=== PATIENT | male | born 1935 | race Caucasian/White ===

== ENCOUNTER → 2017-12-07 | Outpatient (CLI) | payer MEDICARE ==
[~2017-12-07] MED LIST: ALBU8.5H12 IH; ASPI-1471 PO; AZIT-1 PO; BLOO-1318 MC; CLOP75TA43 PO; CYAN100T25 PO; EZET1TAB PO; IBUP600T22 PO; INSU100I28 SQ; INSU100I36 SQ; INSU100V24 SQ; LANI SUBQ; NAPR500T31 PO; OMEG500C5 PO; OSE75 PO; PYRI100T57 PO; VAL80 PO
[2017-12-07 16:36] LABS: PLATELET COUNT, AUTOMATED 213 K/uL (150-450)
== END ==
LOC: LAB 16:22
PROVIDERS: ATTEND Emergency Medicine
DX: E11.9 Type 2 diabetes mellitus without complications (principal)
CPT/HCPCS: 36415; 82040; 82247; 82310; 82374; 82435; 82550; 82565; 82947; 83036; 84075; 84132; 84155; 84295; 84450; 84460; 84520; 85025

== ENCOUNTER 2018-01-31 19:03 | Emergency (ER) | payer MEDICARE ==
[~2018-01-31 19:03] MED LIST changes: +BIPAP
--- NOTE | 2018-01-31 19:13 | ER Report ---
History and Physical Time Seen By MD: 19:13 Hx. of Stated Complaint: pt has a dry cough since last night; states that his chest is tight HPI/ROS CHIEF COMPLAINT: Cough HISTORY OF PRESENT ILLNESS: 83-year-old male patient presents to emergency room with complaint of cough. Patient states that he was up and whorling yesterday. As he was traveling to [place] he was having significant amounts of coughing. He states that he never coughed anything up the cough is just dry. He denies having any fevers, chills, nausea, vomiting or diarrhea. Patient states he is not taking any medication for this other than Tylenol. States the Tylenol did seem to help a little bit. Patient states that the cough is just been very persistent and wanted to get that checked out to make sure that he didn't become something more significant. Patient denies having any chest pain, hemoptysis, shortness of breath. Patient states he does feel like his chest is tight. REVIEW OF SYSTEMS: Respiratory: As noted above Cardiovascular: No chest pain, no palpitations. Gastrointestinal: No vomiting, no abdominal pain. Musculoskeletal: No back pain. 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 Please fill for 90 days plus 3 refills. Prov:LOC BANEGAS MD 03/28/17 Insulin Lispro 100 Un/Ml Vial (HUMALOG 100 U/ML VIAL) 100 Unit/1 Ml Vial, 12 UNIT SQ TIDAC, #6 VIAL 3 Refills Prov:LOC BANEGAS MD 01/07/16 Reported Medications Acetaminophen (TYLENOL) 325 Mg Tablet, 325 MG PO PRN, TAB 01/31/18 Bipap Home (BIPAP HOME) Inha 01/13/18 [place]-3 Fatty Acids (FISH OIL) 500 Mg Capsule.dr, 500 MG PO DAILY 08/04/14 Cyanocobalamin (Vitamin B-12) (VITAMIN B-12) 100 Mcg Tablet, 100 MCG PO DAILY 08/04/14 Pyridoxine Hcl (VITAMIN B-6) 100 Mg Tablet, 100 MG PO DAILY 08/04/14 Ibuprofen (IBUPROFEN) 600 Mg Tablet, 500 MG PO Q6H Y for PAIN 08/04/14 Ezetimibe/Simvastatin (VYTORIN 10-10 MG TABLET) 1 Each Tablet, 1 EACH PO QDAY 08/04/14 Aspirin (ASPIR 81) 81 Mg Tablet.dr, 81 MG PO QDAY, TAB 08/04/14 Clopidogrel Bisulfate (PLAVIX) 75 Mg Tablet, 1 TAB PO QDAY TAKE ONE TABLET BY MOUTH EVERY DAY 08/04/14 Discontinued Scripts Valsartan (DIOVAN) 80 Mg Tablet, 0.5 TAB PO DAILY, #1 TAB Prov:LOC BANEGSA MD 12/07/17 Naproxen (NAPROXEN) 500 Mg Tablet, 500 MG PO BID for 7 Days, #14 TAB Prov:JIMMIE ROPER MD 05/09/17 Past Medical/Surgical History Patient has a past medical history of CVA, eye, oxygen at night, prostate cancer , diabetes. Patient has a surgical history of prostatectomy, tonsillectomy, triple bypass. Reviewed Nurses Notes: Yes Hx Smoking: No Smoking Status: Never Smoker, Former Smoker Exposure to Second Hand Smoke?: Yes Hx Substance Use Disorder: No Hx Alcohol Use: No Constitutional Vital Sign - Last 24 Hours 01/31/18 01/31/18 01/31/18 01/31/18 19:09 19:09 19:33 19:38 Temp 98.2 Pulse 57 53 57 Resp 17 B/P (MAP) 150/62 150/62 (91) Pulse Ox 92 97 97 O2 Delivery Room Air 01/31/18 01/31/18 20:00 20:08 Pulse 52 B/P (MAP) 133/60 (84) Pulse Ox 96 Physical Exam General Appearance: The patient is alert, has no immediate need for airway protection and no current signs of toxicity. Respiratory: Chest is non tender, lungs are clear to auscultation. Cardiac: regular rate and rhythm Gastrointestinal: Abdomen is soft and non tender, no masses, bowel sounds normal. Musculoskeletal: Neck: Neck is supple and non tender. Extremities have full range of motion and are non tender. Skin: No rashes or lesions. DIFFERENTIAL DIAGNOSIS: After history and physical exam differential diagnosis was considered for pneumonia, bronchitis, reactive airway, reflux, reaction medication. Medical Decision Making Data Points Result Diagram: 01/31/18193501/31/181935 Laboratory Hematology Test 01/31/18 19:36 Red Blood Count 3.98 M/uL (4.00-5.60) Mean Corpuscular Volume 88.9 fL (80.0-96.0) Mean Corpuscular Hemoglobin 30.7 pg (26.0-33.0) Mean Corpuscular Hemoglobin Concent 34.5 g/dL (32.0-36.0) Red Cell Distribution Width 14.4 % (11.5-14.5) Mean Platelet Volume 7.1 fL (7.2-11.1) Neutrophils (%) (Auto) 72.7 % (39.4-72.5) Lymphocytes (%) (Auto) 17.7 % (17.6-49.6) Monocytes (%) (Auto) 7.8 % (4.1-12.4) Eosinophils (%) (Auto) 1.1 % (0.4-6.7) Basophils (%) (Auto) 0.7 % (0.3-1.4) Nucleated RBC Relative Count (auto) 0.2 /100WBC Neutrophils # (Auto) 4.5 K/uL (2.0-7.4) Lymphocytes # (Auto) 1.1 K/uL (1.3-3.6) Monocytes # (Auto) 0.5 K/uL (0.3-1.0) Eosinophils # (Auto) 0.1 K/uL (0.0-0.5) Basophils # (Auto) 0.0 K/uL (0.0-0.1) Nucleated RBC Absolute Count (auto) 0.01 K/uL Sodium Level 135 mmol/L (137-145) Potassium Level 4.5 mmol/L (3.5-5.0) Chloride Level 99 mmol/L (98-107) Carbon Dioxide Level 28 mmol/L (22-30) Blood Urea Nitrogen 25 mg/dl (9-21) Creatinine 1.20 mg/dl (0.66-1.25) Glomerular Filtration Rate Calc 57.8 Random Glucose 187 mg/dl (75-110) Calcium Level 8.9 mg/dl (8.4-10.2) Total Bilirubin 0.3 mg/dl (0.2-1.3) Aspartate Amino Transf (AST/SGOT) 26 U/L (0-35) Alanine Aminotransferase (ALT/SGPT) 25 U/L (0-56) Alkaline Phosphatase 56 U/L (0-126) Troponin I < 0.012 ng/ml Total Protein 6.8 g/dl (6.3-8.2) Albumin 4.1 g/dl (3.5-5.0) Chemistry Test 01/31/18 19:36 White Blood Count 6.3 k/uL (4.5-11.0) Red Blood Count 3.98 M/uL (4.00-5.60) Hemoglobin 12.2 g/dL (14.0-18.0) Hematocrit 35.4 % (42.0-52.0) Mean Corpuscular Volume 88.9 fL (80.0-96.0) Mean Corpuscular Hemoglobin 30.7 pg (26.0-33.0) Mean Corpuscular Hemoglobin Concent 34.5 g/dL (32.0-36.0) Red Cell Distribution Width 14.4 % (11.5-14.5) Platelet Count 209 K/uL (150-450) Mean Platelet Volume 7.1 fL (7.2-11.1) Neutrophils (%) (Auto) 72.7 % (39.4-72.5) Lymphocytes (%) (Auto) 17.7 % (17.6-49.6) Monocytes (%) (Auto) 7.8 % (4.1-12.4) Eosinophils (%) (Auto) 1.1 % (0.4-6.7) Basophils (%) (Auto) 0.7 % (0.3-1.4) Nucleated RBC Relative Count (auto) 0.2 /100WBC Neutrophils # (Auto) 4.5 K/uL (2.0-7.4) Lymphocytes # (Auto) 1.1 K/uL (1.3-3.6) Monocytes # (Auto) 0.5 K/uL (0.3-1.0) Eosinophils # (Auto) 0.1 K/uL (0.0-0.5) Basophils # (Auto) 0.0 K/uL (0.0-0.1) Nucleated RBC Absolute Count (auto) 0.01 K/uL Glomerular Filtration Rate Calc 57.8 Calcium Level 8.9 mg/dl (8.4-10.2) Total Bilirubin 0.3 mg/dl (0.2-1.3) Aspartate Amino Transf (AST/SGOT) 26 U/L (0-35) Alanine Aminotransferase (ALT/SGPT) 25 U/L (0-56) Alkaline Phosphatase 56 U/L (0-126) Troponin I < 0.012 ng/ml Total Protein 6.8 g/dl (6.3-8.2) Albumin 4.1 g/dl (3.5-5.0) EKG/Imaging EKG Interpretation 12 lead EKG: Rhythm: Sinus bradycardia [place]: normal QRS: Nonspecific intraventricular block ST segments: normal Imaging 2 VIEWS CHEST INDICATION: Cough for 2 to 3 days. COMPARISON: 11/25/2016. FINDINGS: Cardiomediastinal silhouette and pulmonary vessels within normal limits. Sternotomy changes. There is no focal infiltrate or lobar consolidation. There is no pneumothorax or pleural effusion. No nodule. Mild postinflammatory changes again seen apices without nodule. Upper abdomen is unremarkable. No acute bony abnormality. IMPRESSION: 1. No acute cardiopulmonary process. Report Dictated By: Darci Roman at 01/31/2018 7:52 PM Report E-Signed By: Darci Roman at 01/31/2018 7:54 PM ED Course/Re-evaluation ED Course Patient was admitted to the exam room, history of physical were obtained. Differential diagnoses were considered. On examination lungs are clear, heart is regular, abdomen soft nontender. A CBC, CMP, troponin, EKG, chest x-ray were done. Labs were negative, he did seem to be a little bit dehydrated with a elevated BUN and normal creatinine. Troponin was normal. EKG showed a sinus bradycardia. Entire time the patient was here in the emergency room he did not have any coughing. We will go ahead and discharge him home at this time. We will give him a limited supply of promethazine with codeine cough syrup, Tessalon Perles. He is to use promethazine just at nighttime. He is return to emergency room if condition worsens. Would like an increase fluid intake, get plenty of rest. He is to follow-up with his primary care provider in the next week. Patient is daughter verbalized understanding and agreement with plan. Decision to Disposition Date: Jan 31, 2018 Decision to Disposition Time: 20:27 Depart Departure Latest Vital Signs Vital Signs Date Time Temp Pulse Resp B/P (MAP) Pulse Ox O2 Delivery O2 Flow Rate FiO2 01/31/18 20:08 52 96 01/31/18 20:00 133/60 (84) 01/31/18 19:09 98.2 17 Room Air Impression: Primary Impression: Cough Condition: Improved Disposition: HOME OR SELF-CARE Referrals: LOC BANEGAS MD (PCP) New Scripts Promethazine HCl/Codeine (Prometh-Codein 6.25-10 mg/5 ml) 5 Ml Syrup 1 TSP PO QHS Y for COUGH, #60 ML Prov: ABHAY MELARA 01/31/18 Benzonatate 100 Mg Cap (TESSALON PERLE 100 MG CAP) 100 Mg Capsule 100 MG PO TID Y for COUGH, #15 CAP Prov: ABHAY MELARA 01/31/18 Patient Instructions: Acute Cough (ED) Additional Instructions: Increase fluid intake. Get plenty of rest. Follow up with your primary care provider in the next week. Return to the ER if condition worsens. Take the medication as prescribed. ABHAY MELARA Jan 31, 2018 19:13
[2018-01-31] MEDS ORDERED: ACET-1966 PO (19:21)
--- NOTE | 2018-01-31 19:32 | EKG ---
FACILITY: [facility] [place] PATIENT NAME: SUSI MAYFIELD : [id number] MR: [id number] V: [id number] EXAM DATE: ORDERING PHYSICIAN: ABHAY MELARA TECHNOLOGIST: Test Reason : CHEST TIGHTNESS Blood Pressure : / mmHG Vent. Rate : 052 BPM Atrial Rate : 052 BPM P-R Int : 176 ms QRS Dur : 126 ms QT Int : 450 ms P-R-T Axes : 068 051 048 degrees QTc Int : 418 ms Sinus bradycardia Left bundle branch block Cannot rule out Septal infarct , age undetermined Abnormal ECG No previous ECGs available Confirmed by QI CAREY ([id number]) on 01/31/2018 9:01:33 PM Referred By: Confirmed By:QI CAREY
[2018-01-31 19:46] LABS: PLATELET COUNT, AUTOMATED 209 K/uL (150-450)
[2018-01-31] MEDS ORDERED: hydrOXYzine 25 MG TAB TH 2 TAB/BOTTLE PO ONE (19:55)
--- NOTE | 2018-01-31 19:58 | RADIOLOGY IMAGING REPORT ---
FACILITY: [facility] PATIENT NAME: Tab Moreno : 1935 MR: [id number] V: [id number] EXAM DATE: ORDERING PHYSICIAN: ABHAY MELARA TECHNOLOGIST: Location: [facility] Patient: Tab Moreno : 1935 Visit/Account:[id number] Date of Sevice: 01/31/2018 2 VIEWS CHEST INDICATION: Cough for 2 to 3 days. COMPARISON: 11/25/2016. FINDINGS: Cardiomediastinal silhouette and pulmonary vessels within normal limits. Sternotomy changes. There is no focal infiltrate or lobar consolidation. There is no pneumothorax or pleural effusion. No nodule. Mild postinflammatory changes again seen apices without nodule. Upper abdomen is unremarkable. No acute bony abnormality. IMPRESSION: 1. No acute cardiopulmonary process. Report Dictated By: Darci Roman at 01/31/2018 7:52 PM Report E-Signed By: Darci Roman at 01/31/2018 7:54 PM WSN:[id number]
[2018-01-31] MEDS ORDERED: BENZ100C4 PO (20:25)
[2018-01-31] MEDS ORDERED: PROMETH/COD SYRP 6.25-10MG/5ML PO ONE (20:25)
[2018-01-31] MEDS ORDERED: PROM5SYR PO (20:25)
[2018-01-31] MEDS ORDERED: BENZONATATE 100 MG CAP PO ONE (20:25)
[2018-01-31 20:30] VITALS: BP 126/61
== END 2018-01-31 20:37 | disposition home or self-care (01) ==
LOC: ER 19:26
DX: R05 Cough (principal)
CPT/HCPCS: 36415; 84484; 85025; 93005; 99284; A9270; 71046; 82040; 82247; 82310; 82374; 82435; 82565; 82947; 84075; 84132; 84155; 84295; 84450; 84460; 84520

== ENCOUNTER → 2018-03-01 | Outpatient (CLI) | payer MEDICARE ==
[~2018-03-01] MED LIST changes: +ACET-1966 PO; +BENZ100C4 PO; +PROM5SYR PO
== END ==
LOC: RESP 20:27
PROVIDERS: ATTEND Emergency Medicine
DX: G47.33 Obstructive sleep apnea (adult) (pediatric) (principal); G47.36 Sleep related hypoventilation in conditions classified elsewhere

== ENCOUNTER → 2018-03-29 | Outpatient (CLI) | payer MEDICARE ==
[~2018-03-29] MED LIST changes: +FLUT16SP19 NS
== END ==
LOC: LAB 09:49
PROVIDERS: ATTEND Internal Medicine
DX: I25.810 Atherosclerosis of coronary artery bypass graft(s) without angina pectoris (principal); E78.2 Mixed hyperlipidemia; I65.23 Occlusion and stenosis of bilateral carotid arteries; E10.65 Type 1 diabetes mellitus with hyperglycemia
CPT/HCPCS: 36415; 82040; 82247; 82310; 82374; 82435; 82465; 82565; 82947; 83036; 83718; 84075; 84132; 84155; 84295; 84450; 84460; 84478; 84520

== ENCOUNTER → 2018-06-28 | Outpatient (CLI) | payer MEDICARE ==
[~2018-06-28] MED LIST changes: +FLU180SY11 IM
[2018-06-28 15:55] LABS: PLATELET COUNT, AUTOMATED 250 K/uL (150-450)
--- NOTE | 2018-06-28 17:39 | RADIOLOGY IMAGING REPORT ---
FACILITY: [facility] - [place] PATIENT NAME: Tab Moreno : 1935 MR: [id number] V: [id number] EXAM DATE: ORDERING PHYSICIAN: LOC BANEGAS TECHNOLOGIST: [place] [facility] [place] Moreno : 1935 Visit/Account:[id number] Date of Sevice: 06/28/2018 HIP LEFT Indication: Left hip pain radiating down leg. Comparison: None available Findings: There is no acute fracture or dislocation of the left hip. Mild degenerative changes left hip joint noted Moderate degenerative disc disease at L4-L5. Surgical clips project over the pelvis. IMPRESSION: 1. No acute osseous abnormality left hip. Report Dictated By: Brien Parnell MD at 06/28/2018 5:35 PM Report E-Signed By: Brien Parnell MD at 06/28/2018 5:36 PM WSN:[id number]
== END ==
LOC: LAB 15:37
PROVIDERS: ATTEND Emergency Medicine
DX: E10.9 Type 1 diabetes mellitus without complications (principal); M25.552 Pain in left hip
CPT/HCPCS: 36415; 82040; 82247; 82310; 82374; 82435; 82565; 82947; 83036; 84075; 84132; 84155; 84295; 84450; 84460; 84520; 85025; 86140

== ENCOUNTER → 2018-08-04 | Outpatient (CLI) | payer MEDICARE ==
[~2018-08-04] MED LIST changes: +ASPI81TA86 PO; +EZET10TA41 PO; +HUM75/25I SUBQ; +IBUP-56 PO; +IRBE75TA10 PO; +SIMV-49 PO; +TRAM-420 PO
--- NOTE | 2018-08-05 03:26 | RADIOLOGY IMAGING REPORT ---
FACILITY: [facility] - [place] PATIENT NAME: Tab Moreno : 1935 MR: [id number] V: [id number] EXAM DATE: ORDERING PHYSICIAN: LOC BANEGAS TECHNOLOGIST: Location: [facility] [place] Patient: Tab Moreno : 1935 Visit/Account:[id number] Date of Sevice: 08/04/2018 EXAMINATION: Ultrasound bilateral lower extremity arterial exam. HISTORY: Left lower extremity pain. High ABIs both sides. COMPARISON: None. FINDINGS: Right lower extremity: The arterial system is patent from the common femoral artery through the dorsalis pedis artery. Peak systolic velocities range from 146 cm/sec in the common femoral artery to 83 cm/sec in the dorsalis p marcin artery. Mildly elevated velocity in the mid superficial femoral artery of 165 cm/sec. There is moderate calcified plaque, worst in the superficial femoral artery with mild visible narrowi ng distally. Left lower extremity: The arterial system is patent from the common femoral artery through the dorsalis pedis artery. Peak systolic velocities range from 109 cm/sec in the common femoral artery to 47 cm/sec in the dorsalis p marcin artery. Mildly elevated velocity in the mid superficial femoral artery of 152 cm/sec. There is moderate calcified plaque, worst in the superficial femoral artery. Biphasic waveforms in th e dorsalis pedis artery. IMPRESSION: 1. Patent bilateral lower extremity arteries. 2. 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 3. Moderate atherosclerotic plaque of the left lower extremity with stenosis of the mid superficial f emoral artery, likely over 50%. Report Dictated By: Regine Whiting MD at 08/05/2018 3:16 AM Report E-Signed By: Regine Whiting MD at 08/05/2018 3:23 AM WSN:[id number]
== END ==
LOC: US 11:00
PROVIDERS: ATTEND Emergency Medicine
DX: I70.203 Unspecified atherosclerosis of native arteries of extremities, bilateral legs (principal)
CPT/HCPCS: 93925

== ENCOUNTER 2018-08-07 13:11 | Observation (INO) | payer MEDICARE ==
[~2018-08-07] VITALS: Ht 182.9 cm; Wt 69.4 kg
[~2018-08-07 13:11] MED LIST changes: -ASPI81TA86 PO; -EZET10TA41 PO; -HUM75/25I SUBQ; -IBUP-56 PO; -IRBE75TA10 PO; -SIMV-49 PO
[2018-08-07 14:01] LABS: PLATELET COUNT, AUTOMATED 243 K/uL (150-450)
--- NOTE | 2018-08-07 14:04 | EKG ---
FACILITY: [facility] PATIENT NAME: SUSI MAYFIELD : [id number] MR: [id number] V: [id number] EXAM DATE: ORDERING PHYSICIAN: SHEELA SHANE TECHNOLOGIST: BONI Test Reason : Blood Pressure : / mmHG Vent. Rate : 099 BPM Atrial Rate : 099 BPM P-R Int : 196 ms QRS Dur : 140 ms QT Int : 374 ms P-R-T Axes : 084 103 073 degrees QTc Int : 479 ms Normal sinus rhythm Left bundle branch block Abnormal ECG When compared with ECG of 01.31.2018 No significant change was found Confirmed by Óscar Pena ([id number]) on 08/07/2018 10:44:49 PM Referred By: JANEEN Confirmed By:Óscar Durand
--- NOTE | 2018-08-07 14:44 | ER Report ---
History and Physical Time Seen By MD: 13:15 Hx. of Stated Complaint: VOMITING HPI/ROS CHIEF COMPLAINT: Altered mental status HISTORY OF PRESENT ILLNESS: Patient brought in by EMS, due to concern by daughter who lives with him. He has had 2 days of decreased responsiveness and increased confusion that worsened this morning. Patient has had 5 episodes of nonbloody nonbilious vomiting this morning. No diarrhea or abdominal pain. He can answer simple questions and denies further ROS. REVIEW OF SYSTEMS: Constitutional: No fever, no chills. Eyes: no blurred vision. ENT: No sore throat. Cardiovascular: No chest pain, no palpitations. Respiratory: No cough, no shortness of breath. Gastrointestinal: above Genitourinary: no dysuria Musculoskeletal: No back pain. Skin: No rashes. Neurological: No headache. Difficulty word finding v understanding. no new focal weakness Remainder of the 14 system rev: Yes Allergies: Coded Allergies: acetaminophen (Verified Adverse Reaction, Mild, GI UPSET, 08/07/18) propoxyphene (Verified Adverse Reaction, Mild, GI UPSET, 08/07/18) Home Meds Active Scripts Insulin Glargine (LANTUS) 100 Unit/Ml Soln, 20 UNIT SUBQ HS, #2 VIAL 3 Refills Prov:LOC BANEGAS MD 04/11/18 Fluticasone Prop 50 Mcg Ns (FLONASE 50 MCG NS) 16 Gm [place].susp, 1 SPRAY NS BID for 10 Days, #1 BOT 0 Refills Prov:MILDRED GOMEZ DNP, FRONT OFFICE REPRESENTATIVE-BC 03/17/18 Insulin Lispro 100 Un/Ml Vial (HUMALOG 100 U/ML VIAL) 100 Unit/1 Ml Vial, 12 UNIT SQ TIDAC, #6 VIAL 3 Refills Prov:LOC BANEGAS MD 02/08/18 One Touch Ultra Test Strips (ONE TOUCH ULTRA TEST STRIPS) 1 Each Strip, 2 BOX MC 5XD, #450 STRIP 3 Refills Pt tests 5 times a day. Please fill for 90 days plus 3 refills. Prov:LOC BANEGAS MD 03/28/17 Reported Medications Acetaminophen (TYLENOL) 325 Mg Tablet, 325 MG PO PRN, TAB 01/31/18 Bipap Home (BIPAP HOME) Inha 01/13/18 [place]-3 Fatty Acids (FISH OIL) 500 Mg Capsule.dr, 500 MG PO DAILY 2/15/15 Cyanocobalamin (Vitamin B-12) (VITAMIN B-12) 100 Mcg Tablet, 100 MCG PO DAILY 08/04/14 Pyridoxine Hcl (VITAMIN B-6) 100 Mg Tablet, 100 MG PO DAILY 08/04/14 Ibuprofen (IBUPROFEN) 600 Mg Tablet, 500 MG PO Q6H PRN for PAIN 08/04/14 Ezetimibe/Simvastatin (VYTORIN 10-10 MG TABLET) 1 Each Tablet, 1 EACH PO QDAY 08/04/14 Aspirin (ASPIR 81) 81 Mg Tablet.dr, 81 MG PO QDAY, TAB 08/04/14 Clopidogrel Bisulfate (PLAVIX) 75 Mg Tablet, 1 TAB PO QDAY TAKE ONE TABLET BY MOUTH EVERY DAY 08/04/14 Discontinued Scripts Tramadol Hcl (TRAMADOL HCL) 50 Mg Tablet, 50-100 MG PO Q4-6H, #30 TAB Prov:LOC BANEGAS MD 08/04/18 Reviewed Nurses Notes: Yes Old Medical Records Reviewed: Yes Hx Smoking: No Smoking Status: Never Smoker, Former Smoker Exposure to Second Hand Smoke?: Yes Hx Substance Use Disorder: No Hx Alcohol Use: No Constitutional Vital Sign - Last 24 Hours 08/07/18 08/07/18 08/07/18 08/07/18 13:17 13:19 13:30 13:45 Temp 99.6 Pulse 96 90 Resp 16 10 B/P (MAP) 155/66 (95) 155/66 143/65 (91) Pulse Ox 93 92 O2 Delivery Nasal Cannula 08/07/18 08/07/18 08/07/18 08/07/18 14:00 14:30 14:45 15:00 Pulse 87 Resp 18 B/P (MAP) 132/54 (80) 135/75 (95) 110/54 (72) Pulse Ox 95 08/07/18 08/07/18 08/07/18 08/07/18 15:15 15:30 15:45 16:00 Pulse 87 99 Resp 10 30 B/P (MAP) 118/48 (71) 110/75 (87) Pulse Ox 95 93 08/07/18 08/07/18 08/07/18 16:15 16:30 16:45 Pulse 95 85 Resp 20 9 B/P (MAP) 105/72 (83) Pulse Ox 92 93 Physical Exam General Appearance: the patient is awake. He answers questions slowly, partially due to difficulty hearing. Has hearing aids in. Eyes: Pupils equal and round no pallor or injection. No nystagmus ENT, Mouth: Mucous membranes are slightly dry Respiratory: There are no retractions, lungs are clear to auscultation. Cardiovascular: borderline tachycardia no m/r/g Gastrointestinal: Abdomen is soft and non tender, no masses, bowel sounds normal. Neurological: awake, follows commands, alert to person and that this is ho spital, though has difficulty stating that he is in hospital Skin: Warm and dry, no rashes. Musculoskeletal: Neck is supple non tender. Extremities are nontender, nonswollen and have full range of motion. DIFFERENTIAL DIAGNOSIS: After history and physical exam differential diagnosis was considered for acs, cva, dehydration, sepsis, or other emergent cause of symptoms. Medical Decision Making Data Points Result Diagram: 08/07/18 1336 08/07/18 1336 Laboratory Hematology Test 08/07/18 13:36 08/07/18 14:59 08/07/18 15:06 08/07/18 17:02 Red Blood Count 4.50 M/uL (4.00-5.60) Mean Corpuscular Volume 89.8 fL (80.0-96.0) Mean Corpuscular Hemoglobin 29.5 pg (26.0-33.0) Mean Corpuscular Hemoglobin Concent 32.9 g/dL (32.0-36.0) Red Cell Distribution Width 14.2 % (11.5-14.5) Mean Platelet Volume 7.2 fL (7.2-11.1) Neutrophils (%) (Auto) 92.1 % (39.4-72.5) Lymphocytes (%) (Auto) 4.6 % (17.6-49.6) Monocytes (%) (Auto) 2.3 % (4.1-12.4) Eosinophils (%) (Auto) 0.5 % (0.4-6.7) Basophils (%) (Auto) 0.5 % (0.3-1.4) Nucleated RBC Relative Count (auto) 0.0 /100WBC Neutrophils # (Auto) 13.0 K/uL (2.0-7.4) Lymphocytes # (Auto) 0.7 K/uL (1.3-3.6) Monocytes # (Auto) 0.3 K/uL (0.3-1.0) Eosinophils # (Auto) 0.1 K/uL (0.0-0.5) Basophils # (Auto) 0.1 K/uL (0.0-0.1) Nucleated RBC Absolute Count (auto) 0.00 K/uL Blood Gas Patient Temperature 99.6 DEGREES Venous Blood pH 7.35 (7.31-7.41) Venous Blood Partial Pressure CO2 42 mmHg Venous Blood Partial Pressure O2 < 35 mmHg Venous Blood HCO3 23 mmol/L Venous Blood Oxygen Saturation 56 % Venous Blood Base Excess -2 mmol/L Oxygen Liters/Minute 4l Sodium Level 136 mmol/L (137-145) Potassium Level 5.1 mmol/L (3.5-5.0) Chloride Level 100 mmol/L (98-107) Carbon Dioxide Level 27 mmol/L (22-30) Blood Urea Nitrogen 34 mg/dl (9-21) Creatinine 1.40 mg/dl (0.66-1.25) Glomerular Filtration Rate Calc 48.4 Random Glucose 119 mg/dl (75-110) Lactate 1.1 mmol/L (0.7-2.1) Calcium Level 9.1 mg/dl (8.4-10.2) Magnesium Level 2.0 mg/dl (1.7-2.2) Total Bilirubin 0.4 mg/dl (0.2-1.3) Aspartate Amino Transf (AST/SGOT) 34 U/L (0-35) Alanine Aminotransferase (ALT/SGPT) 28 U/L (0-56) Alkaline Phosphatase 68 U/L (0-126) Total Protein 7.4 g/dl (6.3-8.2) Albumin 4.5 g/dl (3.5-5.0) Influenza Virus Type A (PCR) Negative (NEGATIVE) Influenza Virus Type B (PCR) Negative (NEGATIVE) Urine Color Yellow Urine Clarity Clear Urine pH 7.0 pH (4.8-9.5) Urine Specific [place] 1.015 Urine Protein Negative mg/dL (NEGATIVE) Urine Glucose (UA) Negative mg/dL (NEGATIVE) Urine Ketones Trace mg/dL (NEGATIVE) Urine Blood Negative (NEGATIVE) Urine Nitrite Negative (NEGATIVE) Urine Bilirubin Negative (NEGATIVE) Urine Urobilinogen Negative mg/dL (0.2-1.9) Urine Leukocyte Esterase Negative (NEGATIVE) Urine RBC 1 /HPF (0-2/HPF) Urine WBC 1 /HPF (0-5/HPF) Urine Squamous Epithelial Cells None /LPF (NONE-FEW) Urine Bacteria Negative /HPF (NONE-FEW) Urine Mucus None /HPF (NONE-FEW) Troponin I 0.047 ng/ml Chemistry Test 08/07/18 13:36 08/07/18 14:59 08/07/18 15:06 08/07/18 17:02 White Blood Count 14.1 k/uL (4.5-11.0) Red Blood Count 4.50 M/uL (4.00-5.60) Hemoglobin 13.3 g/dL (14.0-18.0) Hematocrit 40.4 % (42.0-52.0) Mean Corpuscular Volume 89.8 fL (80.0-96.0) Mean Corpuscular Hemoglobin 29.5 pg (26.0-33.0) Mean Corpuscular Hemoglobin Concent 32.9 g/dL (32.0-36.0) Red Cell Distribution Width 14.2 % (11.5-14.5) Platelet Count 243 K/uL (150-450) Mean Platelet Volume 7.2 fL (7.2-11.1) Neutrophils (%) (Auto) 92.1 % (39.4-72.5) Lymphocytes (%) (Auto) 4.6 % (17.6-49.6) Monocytes (%) (Auto) 2.3 % (4.1-12.4) Eosinophils (%) (Auto) 0.5 % (0.4-6.7) Basophils (%) (Auto) 0.5 % (0.3-1.4) Nucleated RBC Relative Count (auto) 0.0 /100WBC Neutrophils # (Auto) 13.0 K/uL (2.0-7.4) Lymphocytes # (Auto) 0.7 K/uL (1.3-3.6) Monocytes # (Auto) 0.3 K/uL (0.3-1.0) Eosinophils # (Auto) 0.1 K/uL (0.0-0.5) Basophils # (Auto) 0.1 K/uL (0.0-0.1) Nucleated RBC Absolute Count (auto) 0.00 K/uL Blood Gas Patient Temperature 99.6 DEGREES Venous Blood pH 7.35 (7.31-7.41) Venous Blood Partial Pressure CO2 42 mmHg Venous Blood Partial Pressure O2 < 35 mmHg Venous Blood HCO3 23 mmol/L Venous Blood Oxygen Saturation 56 % Venous Blood Base Excess -2 mmol/L Oxygen Liters/Minute 4l Glomerular Filtration Rate Calc 48.4 Lactate 1.1 mmol/L (0.7-2.1) Calcium Level 9.1 mg/dl (8.4-10.2) Magnesium Level 2.0 mg/dl (1.7-2.2) Total Bilirubin 0.4 mg/dl (0.2-1.3) Aspartate Amino Transf (AST/SGOT) 34 U/L (0-35) Alanine Aminotransferase (ALT/SGPT) 28 U/L (0-56) Alkaline Phosphatase 68 U/L (0-126) Total Protein 7.4 g/dl (6.3-8.2) Albumin 4.5 g/dl (3.5-5.0) Influenza Virus Type A (PCR) Negative (NEGATIVE) Influenza Virus Type B (PCR) Negative (NEGATIVE) Urine Color Yellow Urine Clarity Clear Urine pH 7.0 pH (4.8-9.5) Urine Specific [place] 1.015 Urine Protein Negative mg/dL (NEGATIVE) Urine Glucose (UA) Negative mg/dL (NEGATIVE) Urine Ketones Trace mg/dL (NEGATIVE) Urine Blood Negative (NEGATIVE) Urine Nitrite Negative (NEGATIVE) Urine Bilirubin Negative (NEGATIVE) Urine Urobilinogen Negative mg/dL (0.2-1.9) Urine Leukocyte Esterase Negative (NEGATIVE) Urine RBC 1 /HPF (0-2/HPF) Urine WBC 1 /HPF (0-5/HPF) Urine Squamous Epithelial Cells None /LPF (NONE-FEW) Urine Bacteria Negative /HPF (NONE-FEW) Urine Mucus None /HPF (NONE-FEW) Troponin I 0.047 ng/ml Urinalysis Test 08/07/18 15:06 Urine Color Yellow Urine Clarity Clear Urine pH 7.0 pH (4.8-9.5) Urine Specific [place] 1.015 Urine Protein Negative mg/dL (NEGATIVE) Urine Glucose (UA) Negative mg/dL (NEGATIVE) Urine Ketones Trace mg/dL (NEGATIVE) Urine Blood Negative (NEGATIVE) Urine Nitrite Negative (NEGATIVE) Urine Bilirubin Negative (NEGATIVE) Urine Urobilinogen Negative mg/dL (0.2-1.9) Urine Leukocyte Esterase Negative (NEGATIVE) Urine RBC 1 /HPF (0-2/HPF) Urine WBC 1 /HPF (0-5/HPF) Urine Squamous Epithelial Cells None /LPF (NONE-FEW) Urine Bacteria Negative /HPF (NONE-FEW) Urine Mucus None /HPF (NONE-FEW) EKG/Imaging EKG Interpretation 12 lead EKG: Rhythm: normal sinus rhythm Rate 99 [place]: right QRS: widened; intraventricular block ST segments: St elevations in face of LBBB more pronounced than prior. NSR with nonspecific intraventricular block and resultant st changes. ST depression in V5-6; pt has prior Monitor Interpretation: Normal Sinus Rhythm ED Course/Re-evaluation ED Course 83-year-old male presents with altered mental status and vomiting. Per family, he has been on tramadol the past few days for lower extremity pain presumably due to atherosclerosis for which he is undergoing workup. His initial evaluation is concerning for systemic illness, severe dehydration, CVA, ACS, or other emergent etiology. On initial evaluation is noted to have a leukocytosis though I do not ultimately find a clear focal infectious cause of this. This may be due to the significant vomiting. He also has an EKG which has dynamic changes compared to prior EKGs. He has a persistent left bundle branch block but given ST depressions he has 2 points for sgarbossa, criteria, therefore I will continue to evaluate. Ultimately, patient responds IV fluids and Zofran and improved significantly. However, we'll repeat EKG shows return to baseline compared to prior, his repeat troponin is indiscriminate. I initially consulted stonemason and spoke to his stonemason at [facility]. He felt the patient was pr obably not of urgent need for catheterization and we agreed that this may be more consistent with demand ischemia then acute coronary event at this time. He felt the patient could be monitored here for a repeat tropes and determination of need for nuclear stress test. I consulted our hospitalist who agreed with plan and will admit for further evaluation and continued hydration. I discussed the plans at length with family. They agree as well, especially in light of the fact that patient's prior stroke was iatrogenic due to intervention at that time, and they are reticent to put him through that potential for complication. Patient is full code. He remains alert and asymptomatic at time of admission. Decision to Disposition Date: Aug 07, 2018 Decision to Disposition Time: 18:50 Critical Care Time I spent a total of 45 minutes of critical care time in obtaining history, performing a physical exam, bedside monitoring of interventions, collecting and interpreting tests and discussion with consultants but not including time spent performing procedures. Depart Departure Latest Vital Signs Vital Signs Date Time Temp Pulse Resp B/P (MAP) Pulse Ox O2 Delivery O2 Flow Rate FiO2 08/07/18 16:45 85 9 93 08/07/18 16:30 105/72 (83) 08/07/18 13:19 99.6 Nasal Cannula Impression: Primary Impression: Vomiting Additional Impressions: Dehydration Elevated troponin Condition: Condition Unchanged Disposition: Admitted from ER Referrals: LOC BANEGAS MD (PCP) Problem Qualifiers Primary Impression: Vomiting Vomiting type: unspecified Vomiting Intractability: non-intractable Nausea presence: with nausea Qualified Codes: R11.2 - Nausea with vomiting, unspecified SHEELA SHANE MD Aug 07, 2018 14:44
[2018-08-07] MEDS ORDERED: NS(*) 0.9% 1000 ML BAG 1,000 ML IV ONE (14:45)
--- NOTE | 2018-08-07 14:47 | RADIOLOGY IMAGING REPORT ---
[place] [facility] [place] NAME: Tab Moreno : 1935 MR: [id number] V: [id number] EXAM DATE: ORDERING PHYSICIAN: SHEELA SHAEN TECHNOLOGIST: [place] [facility] [place]no : 1935 Visit/Account:[id number] Date of Sevice: 08/07/2018 CT OF THE BRAIN WITHOUT CONTRAST HISTORY: Altered mental status PROCEDURE: 3.0 mm contiguous axial sections were performed through the brain. Sagittal and coronal r eformats were submitted. COMPARISON: CT brain October 08, 2016 FINDINGS: BRAIN: Brain and intracranial structures: Area of volume loss in the left posterior temporal lobe and pariet al region as matured since the comparison from 2016. There is no evidence of acute infarct, hemorrhag e, or mass lesion. Diffuse cerebral volume loss is moderate. Nonspecific periventricular and deep whi te matter hypoattenuation probably represents chronic ischemic change; cavernous carotid and vertebra l artery atherosclerosis is extensive. Orbits (included portions): Normal. Scalp: Normal. Skull: Normal. Paranasal sinuses and mastoid air cells (included portions): Normal. IMPRESSION: Chronic findings as above but no evidence of acute intracranial abnormality. One of the following dose optimization techniques was utilized in the performance of this exam: Autom ated exposure control; adjustment of the mA and/or kV according to the patient's size; or use of an i terative reconstruction technique. Specific details can be referenced in the facility's radiology C T exam operational policy. Report Dictated By: Hedy Dudley MD at 08/07/2018 2:35 PM Report E-Signed By: Hedy Dudley MD at 08/07/2018 2:43 PM WSN:[id number]
[2018-08-07] MEDS ORDERED: ONDANSETRON 4 MG/2 ML VIAL IVP ONE (14:50)
--- NOTE | 2018-08-07 14:54 | RADIOLOGY IMAGING REPORT ---
FACILITY: [facility] PATIENT NAME: Tab Moreno : 1935 MR: [id number] V: [id number] EXAM DATE: ORDERING PHYSICIAN: SHEELA SHANE TECHNOLOGIST: Location: [facility] [place] Patient: Tab Moreno : 1935 Visit/Account:[id number] Date of Sevice: 08/07/2018 CHEST SINGLE AP INDICATION: dyspnea COMPARISON: 01/31/2018 FINDINGS: Heart size within normal limits. Sternotomy wires are intact There is hazy left lower lobe atelectasis versus infiltrate present. Right lung is clear. There is no pneumothorax or pleural effusion. IMPRESSION: 1. Left lower lobe atelectasis versus infiltrate Report Dictated By: Lit Vela at 08/07/2018 2:48 PM Report E-Signed By: Lit Vela at 08/07/2018 2:49 PM WSN:[id number]
--- NOTE | 2018-08-07 16:58 | EKG ---
FACILITY: [facility] - [place] PATIENT NAME: SUSI MAYFIELD : [id number] MR: [id number] V: [id number] EXAM DATE: ORDERING PHYSICIAN: SHEELA SHANE TECHNOLOGIST: SABINE Nuñez Reason : CP Blood Pressure : / mmHG Vent. Rate : 087 BPM Atrial Rate : 087 BPM P-R Int : 178 ms QRS Dur : 140 ms QT Int : 396 ms P-R-T Axes : 084 089 074 degrees QTc Int : 476 ms Normal sinus rhythm Left bundle branch block Abnormal ECG When compared with ECG of 07-AUG-2018 13:51, No significant change was found Confirmed by Óscar Pena ([id number]) on 08/07/2018 10:47:00 PM Referred By: ACOSTA Confirmed By:Óscar Durand
[2018-08-07] MEDS ORDERED: ASPIRIN 81 MG CHEW PO ONE (18:15)
[2018-08-07 19:43] VITALS: BP 114/51
[2018-08-07] MEDS ORDERED: ASPI81TA86 PO (20:33)
[2018-08-07] MEDS ORDERED: HUM75/25I SUBQ (20:33)
[2018-08-07] MEDS ORDERED: IBUP-56 PO (20:33)
[2018-08-07] MEDS ORDERED: IRBE75TA10 PO (20:33)
[2018-08-07] MEDS ORDERED: SIMV-49 PO (20:33)
[2018-08-07] MEDS ORDERED: EZET10TA41 PO (20:33)
[2018-08-07] MEDS ORDERED: INSULIN GLARGINE 100 U/ML 3 ML PEN SUBQ SCH ×2 (21:00→22:00)
[2018-08-07] MEDS ORDERED: INSULIN HUM LISPRO 100 UN/ML 3 ML VIAL SUBQ PRN (21:40)
--- NOTE | 2018-08-07 22:18 | History & Physical ---
History of Present Illness Chief Complaint vomiting History of Present Illness 83M admitted for ACS rule out. PMHx significant for DM, CAD. Had several episodes of emesis today after being hypoglycemic overnight and family called EMS to have him evaluated in ER. During work up patient had possible changes to EKG and negative troponin which elevated to equivocal on recheck later. Admitted for further evaluation. History Problems: (1) Coronary artery disease Status: Chronic (2) Type 1 diabetes mellitus (3) ZEKE (obstructive sleep apnea) Status: Chronic Home Meds Active Scripts Insulin Glargine (LANTUS) 100 Unit/Ml Soln, 20 UNIT SUBQ HS, #2 VIAL 3 Refills Prov:LOC BANEGAS MD 04/11/18 One Touch Ultra Test Strips (ONE TOUCH ULTRA TEST STRIPS) 1 Each Strip, 2 BOX MC 5XD, #450 STRIP 3 Refills Pt tests 5 times a day. Please fill for 90 days plus 3 refills. Prov:LOC BANEGAS MD 03/28/17 Reported Medications Insulin Lisp Protam/Lisp Human (HUMALOG MIX 75-25 VIAL) 100 Unit/Ml Vial, 12 UNIT SUBQ TIDAC, VIAL 08/07/18 Irbesartan (IRBESARTAN) 75 Mg Tablet, 0.5 TAB PO HS 08/07/18 Simvastatin (SIMVASTATIN) 20 Mg Tablet, 20 MG PO QDAY 08/07/18 Ibuprofen (IBUPROFEN) 200 Mg Tablet, 1 TAB PO Q6H PRN for PAIN, TAB 08/07/18 Ezetimibe (ZETIA) 10 Mg Tablet, 10 MG PO QDAY, TAB 08/07/18 Aspirin (ASPIRIN EC) 81 Mg Tablet.dr, 81 MG PO QDAY, TAB 08/07/18 Bipap Home (BIPAP HOME) Inha 01/13/18 [place]-3 Fatty Acids (FISH OIL) 500 Mg Capsule.dr, 500 MG PO DAILY 08/04/14 Cyanocobalamin (Vitamin B-12) (VITAMIN B-12) 100 Mcg Tablet, 100 MCG PO DAILY 08/04/14 Pyridoxine Hcl (VITAMIN B-6) 100 Mg Tablet, 100 MG PO DAILY 08/04/14 Clopidogrel Bisulfate (PLAVIX) 75 Mg Tablet, 1 TAB PO QDAY TAKE ONE TABLET BY MOUTH EVERY DAY 08/04/14 Discontinued Reported Medications Acetaminophen (TYLENOL) 325 Mg Tablet, 325 MG PO PRN, TAB 01/31/18 Ibuprofen (IBUPROFEN) 600 Mg Tablet, 500 MG PO Q6H PRN for PAIN 08/04/14 Ezetimibe/Simvastatin (VYTORIN 10-10 MG TABLET) 1 Each Tablet, 1 EACH PO QDAY 08/04/14 Discontinued Scripts Tramadol Hcl (TRAMADOL HCL) 50 Mg Tablet, 50-100 MG PO Q4-6H, #30 TAB Prov:LOC BANEGAS MD 08/04/18 Fluticasone Prop 50 Mcg Ns (FLONASE 50 MCG NS) 16 Gm [place].susp, 1 SPRAY NS BID for 10 Days, #1 BOT 0 Refills Prov:MILDRED GOMEZ DNP, DIRECTOR TRANSPORTATION-BC 03/17/18 Insulin Lispro 100 Un/Ml Vial (HUMALOG 100 U/ML VIAL) 100 Unit/1 Ml Vial, 12 UNIT SQ TIDAC, #6 VIAL 3 Refills Prov:LOC BANEGAS MD 02/08/18 Allergies: Coded Allergies: acetaminophen (Verified Adverse Reaction, Mild, GI UPSET, 08/07/18) propoxyphene (Verified Adverse Reaction, Mild, GI UPSET, 08/07/18) Patient History: FHx: heart disease CHILD Hx Smoking: No Smoking Status: Never Smoker Exposure to Second Hand Smoke?: Yes Hx Alcohol Use: Yes Hx Substance Use Disorder: No Social Drug Use: Never Review of Systems All Systems Reviewed/Normal: Yes, Except as Noted Cardiovascular: No Chest Pain, No Palpitations Respiratory: No Shortness of Breath Exam Vital Signs Vital Signs Date Time Temp Pulse Resp B/P (MAP) Pulse Ox O2 Delivery O2 Flow Rate FiO2 08/07/18 20:16 94 Nasal Cannula 3.0 08/07/18 19:43 98.1 84 16 114/51 (72) General Appearance: Alert, Awake, No Acute Distress, Afebrile Neuro: No Gross deficits ENT: Normal Cardiovascular: Normal Rhythm & Peripheral Pulses Respiratory: No Respiratory Distress GI: Abd Soft and Non-Tender Musculoskeletal: No Weakness/Pain Extremities: Soft and Non Tender, Warm, Pulses, Perfused; No Edema Medical Decision Making Data Points Result Diagram: 08/07/18 1336 08/07/18 1336 EKG / Imaging EKG Interpretation NSR with intraventricular conduction delay. Monitor Interpretation: Normal Sinus Rhythm Assessment and Plan Problems: (1) Coronary artery disease Status: Chronic Assessment & Plan: On chronic 81 mg ASA, statin, Plavix continued. Equivocal troponin after negative will trend q6h and if remains negative discharge tomorrow. Suspect mild elevation due to vomiting. (2) Type 1 diabetes mellitus Assessment & Plan: Has continuous glucose monitor, will check ACHS blood sugars, continue decreased dose Lantus and cover with SSI. Episode hypoglycemia overnight and has had some issues at home with low blood sugars per family. (3) ZEKE (obstructive sleep apnea) Status: Chronic Assessment & Plan: Has home CPAP will ensure properly set up and use while inpatient. Venous Thromboembolism Antithrombotics Is Pt On Any Antithrombotics?: No (early ambulation) Exam Sepsis Risk: No Definite Risk CARRILLO WU WATERMAN DO Aug 07, 2018 22:18
[2018-08-08 01:23] VITALS: BP 153/70
[2018-08-08 05:10] LABS: PLATELET COUNT, AUTOMATED 220 K/uL (150-450)
[2018-08-08] MEDS ORDERED: NS(*) 0.9% 1000 ML BAG 1,000 ML IV PRN (06:40)
[2018-08-08] MEDS ORDERED: INSULIN HUM LISPRO 100 UN/ML 3 ML VIAL SUBQ SCH (07:30)
[2018-08-08 07:40] VITALS: BP 118/65
[2018-08-08] MEDS ORDERED: ASPIRIN 81 MG ENTERIC COATED PO SCH (09:00)
[2018-08-08] MEDS ORDERED: CLOPIDOGREL BISULFATE 75MG TAB PO SCH (09:00)
[2018-08-08] MEDS ORDERED: ENOXAPARIN 40 MG/0.4ML SYR SC SCH (09:00)
--- NOTE | 2018-08-08 09:38 | Hospitalist Depart ---
Discharge Summary Reason for Hosp/Final Diag: (1) Vomiting Status: Acute Hospital Course & Plan: He did have an episode of emesis prior to admission, but he has not had any recurrence since admission. (2) Coronary artery disease Status: Chronic Hospital Course & Plan: He is on chronic treatment with aspirin, Plavix, and simvastatin. (3) Type 1 diabetes mellitus Hospital Course & Plan: He is on chronic treatment with Lantus and Humalog. (4) ZEKE (obstructive sleep apnea) Status: Chronic Hospital Course & Plan: He is on chronic treatment with CPAP. Departure Latest Vital Signs Vital Signs 08/08/18 08/08/18 01:23 06:07 Temp 97.9 Pulse 83 Resp 20 B/P (MAP) 153/70 (97) Pulse Ox 89 O2 Delivery Bi-PAP O2 Flow Rate 2.0 Weight (Pounds): 153 Result Diagram: 08/08/1845408/08/18454 Condition: Improved Discharge: Home, Self Care Discharge Instructions Home Meds Active Scripts Insulin Glargine (LANTUS) 100 Unit/Ml Soln, 20 UNIT SUBQ HS, #2 VIAL 3 Refills Prov:LOC BANEGAS MD 04/11/18 One Touch Ultra Test Strips (ONE TOUCH ULTRA TEST STRIPS) 1 Each Strip, 2 BOX MC 5XD, #450 STRIP 3 Refills Pt tests 5 times a day. Please fill for 90 days plus 3 refills. Prov:LOC BANEGAS MD 03/28/17 Reported Medications Insulin Lisp Protam/Lisp Human (HUMALOG MIX 75-25 VIAL) 100 Unit/Ml Vial, 12 UNIT SUBQ TIDAC, VIAL 08/07/18 Irbesartan (IRBESARTAN) 75 Mg Tablet, 0.5 TAB PO HS 08/07/18 Simvastatin (SIMVASTATIN) 20 Mg Tablet, 20 MG PO QDAY 08/07/18 Ibuprofen (IBUPROFEN) 200 Mg Tablet, 1 TAB PO Q6H PRN for PAIN, TAB 08/07/18 Ezetimibe (ZETIA) 10 Mg Tablet, 10 MG PO QDAY, TAB 08/07/18 Aspirin (ASPIRIN EC) 81 Mg Tablet.dr, 81 MG PO QDAY, TAB 08/07/18 Bipap Home (BIPAP HOME) Inha 01/13/18 [place]-3 Fatty Acids (FISH OIL) 500 Mg Capsule.dr, 500 MG PO DAILY 2/15/15 Cyanocobalamin (Vitamin B-12) (VITAMIN B-12) 100 Mcg Tablet, 100 MCG PO DAILY 08/04/14 Pyridoxine Hcl (VITAMIN B-6) 100 Mg Tablet, 100 MG PO DAILY 08/04/14 Clopidogrel Bisulfate (PLAVIX) 75 Mg Tablet, 1 TAB PO QDAY TAKE ONE TABLET BY MOUTH EVERY DAY 08/04/14 Discontinued Reported Medications Acetaminophen (TYLENOL) 325 Mg Tablet, 325 MG PO PRN, TAB 01/31/18 Ibuprofen (IBUPROFEN) 600 Mg Tablet, 500 MG PO Q6H PRN for PAIN 08/04/14 Ezetimibe/Simvastatin (VYTORIN 10-10 MG TABLET) 1 Each Tablet, 1 EACH PO QDAY 08/04/14 Discontinued Scripts Tramadol Hcl (TRAMADOL HCL) 50 Mg Tablet, 50-100 MG PO Q4-6H, #30 TAB Prov:LOC BANEGAS MD 08/04/18 Fluticasone Prop 50 Mcg Ns (FLONASE 50 MCG NS) 16 Gm [place].susp, 1 SPRAY NS BID for 10 Days, #1 BOT 0 Refills Prov:MILDRED GOMEZ DNP, DEPARTMENT CHAIRPERSON-BC 03/17/18 Insulin Lispro 100 Un/Ml Vial (HUMALOG 100 U/ML VIAL) 100 Unit/1 Ml Vial, 12 UNIT SQ TIDAC, #6 VIAL 3 Refills Prov:LOC BANEGAS MD 02/08/18 Diet: Diabetic Activity: As Tolerated Copies to: NEELAM COOPER MD ; Venous Thromboembolism Antithrombotics Is Pt On Any Antithrombotics?: No (early ambulation) Problem Qualifiers (1) Vomiting: Vomiting type: unspecified Vomiting Intractability: non-intractable Nausea presence: with nausea Qualified Codes: R11.2 - Nausea with vomiting, unspecified VLAD ARELLANO DO Aug 08, 2018 09:38
[2018-08-08] MEDS ORDERED: INSULIN GLARGINE 100 U/ML 3 ML PEN SUBQ SCH (21:00)
[2018-08-10] MEDS ORDERED: INFLUENZA VIRUS VAC 0.5ML SYR IM ONLY ONE (09:00)
== END 2018-08-08 09:33 | disposition home or self-care (01) ==
LOC: EDUNIT# 13:11 → ER 13:15 → INTOOBSV 19:18 → MED 19:18
PROVIDERS: ADMIT Internal Medicine; ATTEND Internal Medicine
DX: R11.10 Vomiting, unspecified (principal); E86.0 Dehydration; R79.89 Other specified abnormal findings of blood chemistry
CPT/HCPCS: 36415; 36416; 70450; 71045; 81001; 82803; 82948; 83605; 83735; 84484; 85025; 87502; 93005; 96361; 96372; 96374; 99291; A9270; G0378; J1815; J2405; J7030; 82040; 82247; 82310; 82374; 82435; 82565; 82947; 84075; 84132; 84155; 84295; 84450; 84460; 84520

== ENCOUNTER → 2018-08-07 | Outpatient (CLI) | payer MEDICARE | LOC: AMB 12:39 | PROVIDERS: ATTEND Nurse Practitioner | DX: R11.2 Nausea with vomiting, unspecified (principal); R53.1 Weakness; E11.65 Type 2 diabetes mellitus with hyperglycemia; R41.0 Disorientation, unspecified | CPT/HCPCS: A0425; A0427 ==

== ENCOUNTER → 2018-11-15 | Outpatient (CLI) | payer MEDICARE ==
[~2018-11-15] MED LIST changes: +ASPI81TA86 PO; -CYAN100T25 PO; +CYAN100T26 PO; +EZET10TA41 PO; +GABA-547 PO; +HUM75/25I SUBQ; +IBUP-56 PO; +IRBE75TA10 PO; +SIMV-49 PO
[2018-11-15 10:02] LABS: PLATELET COUNT, AUTOMATED 237 K/uL (150-450)
== END ==
LOC: LAB 09:41
PROVIDERS: ATTEND Emergency Medicine
DX: R41.3 Other amnesia (principal); E10.9 Type 1 diabetes mellitus without complications; I25.10 Atherosclerotic heart disease of native coronary artery without angina pectoris; I10 Essential (primary) hypertension
CPT/HCPCS: 36415; 82040; 82247; 82310; 82374; 82435; 82565; 82607; 82947; 83540; 83550; 84075; 84132; 84155; 84295; 84443; 84450; 84460; 84520; 85025

== ENCOUNTER → 2018-11-17 | Outpatient (CLI) | payer MEDICARE ==
[~2018-11-17] MED LIST changes: +CYAN500T54 PO; +MEMA5TAB14 PO
--- NOTE | 2018-11-17 14:17 | RADIOLOGY IMAGING REPORT ---
FACILITY: [facility] [place] PATIENT NAME: Tab Moreno : 1935 MR: [id number] V: [id number] EXAM DATE: ORDERING PHYSICIAN: LOC BANEGAS TECHNOLOGIST: Location: [facility] [place] Patient: Tab Moreno : 1935 Visit/Account:[id number] Date of Sevice: 11/17/2018 EXAMINATION: MRI Brain without intravenous contrast HISTORY: Dementia. COMPARISON: None available. TECHNIQUE: Multi-planar, multi-sequence brain MRI was performed without IV contrast administration. FINDINGS: Brain volume: Mild to moderate generalized brain parenchymal volume loss. Sagittal midline structures: Negative. Ventricles: Negative. Acute ischemic changes: None. Hemorrhage: None. Masses / edema: None. Richards-white: Encephalomalacia/gliosis in the left lateral frontoparietal region. Small focus of encep halomalacia in the right cerebellar hemisphere. White matter: A few T2/FLAIR hyperintensities in the deep white matter bilaterally. Vessels: Negative. Extra-axial: Negative. Calvarium / scalp: Negative. Skull base: Negative. Visualized sinuses / orbits: Negative. Visualized upper neck: Negative. IMPRESSION: 1. No acute intracranial abnormality or mass. 2. Mild to moderate generalized brain parenchymal volume loss. 3. Encephalomalacia/gliosis in the left lateral frontoparietal region. Small focus of encephalomala priti in the right cerebellar hemisphere. 4. Mild chronic white matter disease is nonspecific but most likely represents chronic microvascular ischemia. 5. No hydrocephalus. No evidence of cerebral amyloid angiopathy. Report Dictated By: Antonio Beck MD at 11/17/2018 2:08 PM Report E-Signed By: Antonio Beck MD at 11/17/2018 2:11 PM [id number]
== END ==
LOC: MRI 06:55
PROVIDERS: ATTEND Emergency Medicine
DX: G93.89 Other specified disorders of brain (principal)
CPT/HCPCS: 70551